=== PATIENT | male | born 1950 | race Caucasian/White ===

== ENCOUNTER 2017-11-14 08:46 | Emergency (ER) | payer MEDICARE, BC ==
[~2017-11-14] VITALS: Ht 177.8 cm; Wt 134.3 kg
[~2017-11-14 08:46] MED LIST: AUGMENTIN 875-1 EACH PO; GLIMEPIRIDE2 MG PO; LISINOPRIL5 MG PO; METFORMIN HCL850 MG PO; PROVENTIL HFA6.7 GM INH; SIMVASTATIN20 MG PO; ZOFRAN4 MG PO
[2017-11-14] MEDS ORDERED: CLEOCIN HCL300 MG PO (09:40)
== END 2017-11-14 10:11 | disposition home or self-care (01) ==
LOC: ED 08:46
PROC: 0H9GXZZ Drainage of Left Hand Skin, External Approach (ICD-10-PCS; principal; 2017-11-14)
DX: L03.012 Cellulitis of left finger (principal); E11.9 Type 2 diabetes mellitus without complications; I10 Essential (primary) hypertension; Z87.891 Personal history of nicotine dependence; Z88.6 Allergy status to analgesic agent; Z88.5 Allergy status to narcotic agent; Z88.7 Allergy status to serum and vaccine; Z79.84 Long term (current) use of oral hypoglycemic drugs; Z79.899 Other long term (current) drug therapy
CPT/HCPCS: 10060; 99283

== ENCOUNTER 2020-09-05 19:54 | Emergency (ER) | payer MEDICARE, BC ==
[~2020-09-05] VITALS: Ht 172.7 cm; Wt 127.9 kg
[~2020-09-05 19:54] MED LIST changes: +ALLOPURINOL300 MG PO; +AMOXICILLIN500 MG PO; +BENZONATATE100 MG PO; +CEPHALEXIN500 MG PO; +CLEOCIN HCL300 MG PO; +ONDANSETRON HCL8 MG PO; +PROCHLORPERAZIN10 MG PO; +VALTREX500 MG PO; +ZITHROMAX250 MG PO
[2020-09-05] MEDS ORDERED: FUROSEMIDE20 MG PO (20:26)
[2020-09-05] MEDS ORDERED: IMBRUVICA420 MG PO (20:26)
[2020-09-05] MEDS ORDERED: METOPROLOL TART25 MG PO (20:26)
[2020-09-05] MEDS ORDERED: FLOMAX0.4 MG PO (20:27)
[2020-09-05] MEDS ORDERED: MELOXICAM7.5 MG PO (20:27)
[2020-09-05] MEDS ORDERED: BACTRIM DS TAB1 EACH PO (20:27)
--- OUTSIDE RECORDS SUMMARY | 2020-09-05 20:46 | XMS ---
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 Bere has no Care Guidelines for this patient. Sujata VISIT COUNT (12 MO.) 1 [facility] TOTAL 1 NOTE: Visits indicate total known visits. ED/UCC VISIT TRACKING (12 MO.) 09/05/2020 19:54 [facility] [place] TYPE: Emergency COMPLAINT: - RT LEG SWELLING/POST OP PROBLEM INPATIENT VISIT TRACKING (12 MO.) 08/16/2020 07:56 Mary[facility] TYPE: Inpatient COMPLAINT: - RIGHT HIP OSTEOARTHRITIS [email or web address]
== END 2020-09-05 21:34 | disposition home or self-care (01) ==
LOC: ED 19:54
DX: M96.89 Other intraoperative and postprocedural complications and disorders of the musculoskeletal system (principal); E11.9 Type 2 diabetes mellitus without complications; I10 Essential (primary) hypertension; Z87.891 Personal history of nicotine dependence; Z88.8 Allergy status to other drugs, medicaments and biological substances; Z88.5 Allergy status to narcotic agent; Z88.7 Allergy status to serum and vaccine; Z79.899 Other long term (current) drug therapy; Z79.84 Long term (current) use of oral hypoglycemic drugs
CPT/HCPCS: 93971; 99283-25

== ENCOUNTER 2021-12-23 11:15 | Inpatient (IN) | payer MEDICARE, BC ==
[~2021-12-23] VITALS: Ht 172.7 cm; Wt 129.3 kg
[~2021-12-23 11:15] MED LIST changes: +BACTRIM DS TAB1 EACH PO; +FLOMAX0.4 MG PO; +FUROSEMIDE20 MG PO; +IMBRUVICA420 MG PO; +MELOXICAM7.5 MG PO; +METOPROLOL TART25 MG PO
[2021-12-23] MEDS ORDERED: ELIQUIS5 MG PO (12:53)
--- NOTE | 2021-12-23 17:30 | NUR ---
PT TO ROOM 115 FROM ER - WITH HIM, PT WITH RT FOR TX. CONFIRM ALLERGY AND CALLED TO DR. FAUSTIN PER REQUEST. OK FOR TYLENOL. PT HAD PAXLOVID FROM DR. CALDERÓN 12/11 FOR COVID TEST FROM HOME, PHONE RX TO PERRY OLMSTEAD FROM [facility]. PT ORIENTED TO ROOM AND CALL LIGHT.
--- NOTE | 2021-12-23 17:43 | NUR ---
CALL FROM DR. FAUSTIN - RN EXPLAINED TO PT THAT ABX WILL CONTINUE FOR PNEUMONIA. WENT HOME TO GET HOME MEDS - PT DOES NOT USE CPAP AT HOME,
[2021-12-23] MEDS ORDERED: METFORMIN HCL1000 MG PO (18:01)
--- NOTE | 2021-12-23 19:37 | NUR ---
REPORT RECEIVED ON PT AT SHIFT CHANGE. DR FAUSTIN CALLED FOR A MISSING DIET ORDER. HE STATED HE WOULD ENTER A DIET ORDER. PT DOES HAVE AC AND HS BG CHECKS WITH SS INSULIN.
--- NOTE | 2021-12-23 20:53 | NUR ---
PT SON BROUGHT IN A HAMBURGER FOR PT. PT UP IN HIS CHAIR, STATES HE HASN'T ATE IN COUPLE DAYS.
--- NOTE | 2021-12-23 21:30 | NUR ---
PT'S LUNGS HAVE EXP WHEEZING THROUGHOUT. PT HAS SCHEDULED NEBULIZER TREATMENTS. HE STATED HE JUST WANTS TO SLEEP TONIGHT BUT PT IS ENCOURAGED TO HAVE HIS NEB TREATMENTS.
--- NOTE | 2021-12-23 21:34 | NUR ---
PT CALLED, IV ALARMING, DISTAL OCCUL. NOW INFUSING. PT COUGHING AND COUGHING, NO OTHER NEEDS AT THIS TIME.
--- NOTE | 2021-12-23 23:17 | NUR ---
PT'S BP IS 85/46 WITH MAP OF 55. PT HAD SOME DIZZINESS WHEN GETTING UP TO THE BATHROOM. DR SAMPSON NOTIFIED WITH A MESSAGE ON HIS CELLL PHONE HE IS IN SURGERY AT THIS TIME.
--- NOTE | 2021-12-24 00:56 | NUR ---
PT IS SITTING UP IN THE CHAIR HE STATES HE HAS BEEN SITTING UP IN HIS CHAIR AT HOME IN ORDER TO BREATHE. HE STATESHIS COUGH IS BETTER AFTER THE BREATHING TREATMENTS. PT HAS RECEIVED THE 1 BAG OF LR ORDERED. IV IS FLUSHED AND SALINE LOCKED. PT IS TOLERATING HIS DIET AND HAS VOIDED.
--- NOTE | 2021-12-24 01:13 | NUR ---
NOTE WRITTEN ON 12/23 AT 2317 REGARDING AN ABNORMAL BP WAS WRITTEN ON THE WRONG PT. PLEASE DISREGARD THIS NOTE INCORRECT.
--- NOTE | 2021-12-24 01:46 | NUR ---
V/S TAKEN AND DOCUMENTED. PATIENT DENIES ANY NEEDS AT THIS TIME. PATIENT WAS UP IN THE CHAIR.
--- NOTE | 2021-12-24 08:43 | NUR ---
MORNING ASSESSMENT COMPLETE. PT UP TO RESTROOM AND BACK TO RECLINER TO FINISH BREAKFAST. LUNG SOUND CRACKLES AND DIM IN THE BASES. SOB WITH ACTIVITY. DENIES NEED AT THIS TIME. CALL LIGHT WITHIN REACH.
--- NOTE | 2021-12-24 09:38 | NUR ---
NEW GOWN PROVIDED FOR PT. PT DENIES NEEDS AT THIS TIME. CALL LIGHT IN REACH.
--- NOTE | 2021-12-24 10:45 | NUR ---
PT SITTING UP IN RECLINER. DENIES NEEDS AT THIS TIME. CALL LIGHT IN REACH.
--- NOTE | 2021-12-24 11:49 | NUR ---
PT LUNCH DELIEVERED. SITTING UP IN RECLINER. PRODUCTIVE COUGH, OFFERED PRN RUBOTUSSIN, PT DENIES NEED AT THIS TIME. CALL LIGHT IN REACH. DENIES FURTHER NEEDS AT THIS TIME.
--- NOTE | 2021-12-24 12:30 | NUR ---
Spoke with Man. States he lives in a 2 story home with 13 steps to get into the home and 8 steps inside the home. He lives with his and son. He has a walker and a cane, but not currently using. Used for a hip surgery. No financial issues. Per pt he is feeling slightly better today, but cont. with severe cough. States he has been very ill since yury covid. He and both drive. and son will assist him if needed when he goes home. Pt place on dc to home when medical- ly cleared. Denies needs.
--- NOTE | 2021-12-24 15:39 | NUR ---
PT SITTING UP AWAKE IN RECLINER. DENIES NEEDS AT THIS TIME. CALL LIGHT IN REACH.
--- NOTE | 2021-12-24 17:30 | NUR ---
PT SITTING UP IN CHAIR EATING DINNER. DENIES NEEDS AT THIS TIME. CALL LIGHT WITHIN REACH.
--- NOTE | 2021-12-24 19:29 | NUR ---
REPORT RECEIVED ON PT . HE IS UP IN HIS CHAIR. CALL LIGHT IN REACH. NO NEEDS AT THIS TIME.
--- NOTE | 2021-12-24 21:00 | NUR ---
CALL LIGHT AT SDIE OF CHAIR.PT UP TO BATHROOM TO VOID. URINE IS DARK YELLOW. PT IS SOB AFTER ACTIVITY. BACK TO CHAIR.
--- NOTE | 2021-12-25 01:00 | NUR ---
PT APPEARS TO BE SLEEPING IN HIS CHAIR. CALL LIGHT IN REACH.
--- NOTE | 2021-12-25 06:50 | NUR ---
PT STATES HE FINALLY SLEPT LAST NIGHT. OF NOTE IS HE HAS HAD A TEMP OF 100.1 THIS AM AND RECEIVED TYLENOL 500 MG PO X1 DOSE. HE ALSO HAS HAD COARSENESS AND EXPIRATORY WHEEZES THROUGHOUT HIS LUNG CRUZ. PT HAS A HARSH STTRONG COUGH THAT IS PRODUCTIVE THICK AND BROWN COLORED. VSS.
--- NOTE | 2021-12-25 09:02 | NUR ---
MORNING ASSESSMENT COMPLETE. PT HAS HARSH PRODUCTIVE COUGH, O2 SAT 95% ON RA. COARSE LUNG SOUNDS THROUGHOUT, MORE PRONOUNCED ON LEFT SIDE. 2+ PITTING EDEMA TO BLE. PT DENIES FURTHER NEEDS AT THIS TIME. CALL LIGHT IN REACH.
--- NOTE | 2021-12-25 09:50 | NUR ---
TO THE [facility]OL [facility] TO SPEAK WITH PATIENT. PATIENT STATES HE IS DOING BETTER AND IS NOTED TO BE SITTING UP THE CHAIR. PATIENT STATES NO NEEDS OR CONCERNS AT THIS TIME. NO CHANGE IS DISCHARGE PLAN.
--- NOTE | 2021-12-25 10:32 | NUR ---
PATIENT IS SITTING UP IN HIS CHAIR. ASKED HIM IS THERE ANYTHING I COULD GET USE AND HE SAID NO. HE HAS BEEN USING HIS TRUMPET.
[2021-12-25] MEDS ORDERED: LEVOFLOXACIN750 MG PO (11:41)
[2021-12-25] MEDS ORDERED: BENZONATATE100 MG PO (11:42)
[2021-12-25] MEDS ORDERED: IPRATROPIU0.2 MG/1 M INH (11:43)
[2021-12-25] MEDS ORDERED: NEBULIZER UNIT XX (11:44)
[2021-12-25] MEDS ORDERED: ROBAFEN DM CGH118 ML PO (11:45)
--- NOTE | 2021-12-25 12:15 | NUR ---
pt sitting in recliner, eating lunch. denies needs at this time. call maxim hidalgo.
--- NOTE | 2021-12-25 13:10 | NUR ---
PT DRESSED, PHARMACY ON THE WAY TO DO DISCHARGE TEACHING. DENIES NEEDS AT THIS TIME. CALL LIGHT IN REACH.
--- NOTE | 2021-12-25 15:00 | NUR ---
Received a call from [facility] stating they needed 6 months of documentation for a nebulizer. Returned their call and spoke with Flor. She let her know, we are not a doctor's office. We have sent the correct paperwork. She then states they need to know the medications and let her know this is also on page 3 of the dc summary. She then lets me know, they are unable to deliver a nebulizer until the . I let her know I have spoken with their grant manager serveral times and he has always let me know they cant to pm deliveries, but will deliver their next trip to [place]. She states they won't be here until the . Let her know this is ok, I will call Man and see if he would like to get it from [facility]. Called pt and let him know [facility] cannot deliver until the . Asked if he would like me to send the papers and the rx to [facility] in [facility] and he states yes. Chart faxed.
--- NOTE | 2021-12-25 16:16 | NUR ---
Called and spoke with Ho. He will use whatever DME company he can. Let him know I called the pharmacys in [facility] and no one has a Nebulizer in stock. Gave him the option of ordering from [facility] [facility] and he would prefer a DME company. [facility] and they have one coach tour driver and he cannot deliver until Wednesday.Let pt know I have called the pharmacies in [facility] and they do not have any nebulizers in [facility]. Pt states he will call family and see if they can pickup from [facility] as they will be near [place] tomorrow. Called [facility] and spoke with the private branch exchange operator, Yariel. Updated pt really wanting and needing a nebulizer. He states he is trying to find a coach tour driver, but not having any luck. Let him know I spoke with the pt and he was able to find a family member who will pick it up tomorrow. I have sent the chart already and they should have everything they need.
== END 2021-12-25 14:40 | disposition home or self-care (01) | DRG 177 ==
LOC: ED 11:15 → MS 11:17
PROVIDERS: ADMIT Internal Medicine; ATTEND Internal Medicine
PROC: 8E0ZXY6 Isolation (ICD-10-PCS; principal; 2021-12-23)
DX: U07.1 COVID-19 (principal); J12.82 Pneumonia due to coronavirus disease 2019; J15.9 Unspecified bacterial pneumonia; C91.10 Chronic lymphocytic leukemia of B-cell type not having achieved remission; I48.0 Paroxysmal atrial fibrillation; E11.9 Type 2 diabetes mellitus without complications; J98.01 Acute bronchospasm; I10 Essential (primary) hypertension; G47.33 Obstructive sleep apnea (adult) (pediatric); Z85.72 Personal history of non-Hodgkin lymphomas; Z98.890 Other specified postprocedural states; Z96.641 Presence of right artificial hip joint; Z92.21 Personal history of antineoplastic chemotherapy; Z90.49 Acquired absence of other specified parts of digestive tract; Z88.5 Allergy status to narcotic agent; Z88.7 Allergy status to serum and vaccine; Z79.84 Long term (current) use of oral hypoglycemic drugs; Z79.899 Other long term (current) drug therapy; Z79.01 Long term (current) use of anticoagulants; Z88.8 Allergy status to other drugs, medicaments and biological substances; Z72.0 Tobacco use
CPT/HCPCS: 36415; 51701; 71045; 71260; 80048; 80053; 83036; 83605; 83880; 85025; 87040; 87070; 87205; 87502; 94640; 94668; 96376; 99285-25; A9270; C9803; G0378; J1815; J1956; J3010; J7121; U0003

== ENCOUNTER 2022-01-06 16:58 | Inpatient (IN) | payer MEDICARE, BC ==
[~2022-01-06] VITALS: Ht 172.7 cm; Wt 121.7 kg
[~2022-01-06 16:58] MED LIST changes: +ELIQUIS5 MG PO; +IPRATROPIU0.2 MG/1 M INH; +LEVOFLOXACIN750 MG PO; +METFORMIN HCL1000 MG PO; +NEBULIZER UNIT XX; +ROBAFEN DM CGH118 ML PO
--- OUTSIDE RECORDS SUMMARY | 2022-01-06 17:06 | XMS ---
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 ERoni VISIT COUNT (12 MO.) 2 [facility] TOTAL 2 NOTE: Visits indicate total known visits. 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 - Presence of right artificial hip joint - Presence of right artificial hip joint - Personal history of antineoplastic chemotherapy - Pneumonia due to coronavirus disease 2019 - Tobacco use - Allergy status to narcotic agent - Tobacco use - Acquired absence of other specified parts of digestive tract - Acute bronchospasm - [facility] (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 - Essential (primary) hypertension - COVID-19 - Acquired absence of other specified parts of digestive tract - Essential (primary) hypertension - Type 2 diabetes mellitus without complications - Allergy status to narcotic agent - Other specified postprocedural states - Other specified postprocedural states - Allergy status to serum and vaccine - Unspecified bacterial pneumonia - Obstructive sleep apnea (adult) (pediatric) - Obstructive sleep apnea (adult) (pediatric) - Chronic lymphocytic leukemia of B-cell type not having achieved remission - Allergy status to other drugs, medicaments and biological substances - Personal history of non-Hodgkin lymphomas - Personal history of antineoplastic chemotherapy - 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 helper (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 - Unspecified bacterial pneumonia - Type 2 diabetes mellitus without complications - Chronic lymphocytic leukemia of B-cell type not having achieved remission - Pneumonia due to coronavirus disease 2018 - Allergy status to serum and vaccine - Acute bronchospasm - Pneumonia, unspecified organism - Personal history of non-Hodgkin lymphomas - Allergy status to other drugs, medicaments and biological substances - Paroxysmal atrial fibrillation - Paroxysmal atrial fibrillation - Other fpc (current) drug therapy - termite 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 helper (current) use of oral hypoglycemic drugs - termite 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 helper (current) use of oral hypoglycemic drugs - COVID-19 [email or web address]
--- NOTE | 2022-01-08 15:53 | EKG ---
[facility] [address] [place] [address] Signed Atrial fibrillation Cannot rule out Anterior infarct , age undetermined Abnormal ECG No previous ECGs available Confirmed by CHDA FAUSTIN MD ([id number]) on 01/08/2022 3:53:41 PM Electronically Signed By: CHAD FUASTIN MD 01/08/22 1553 PATIENT NAME: TIFFANY KUHN JAVED Electrocardiogram DATE OF : 46 PHYSICIAN: CHAD FAUSTIN MD REPORT #: [id number] REPORT IS CONFIDENTIAL AND NOT TO BE RELEASED WITHOUT AUTHORIZATION
[2022-01-19] MEDS ORDERED: DAPSONE100 MG PO (13:04)
[2022-01-19] MEDS ORDERED: SULFAMETHOXAZO1 EAC1 PO (13:04)
[2022-01-19] MEDS ORDERED: TAMSULOSIN HCL0.4 MG PO (13:05)
[2022-01-19] MEDS ORDERED: METOPROLOL TART25 MG PO (13:05)
== END 2022-01-19 14:30 | disposition home or self-care (01) | DRG 871 ==
LOC: ED 16:58 → CCU 19:33 → MS 01-08 15:30 → CCU 01-08 21:04 → MS 01-15 14:45
PROVIDERS: ADMIT Internal Medicine; ATTEND Internal Medicine
PROC: 3E03329 Introduction of Other Anti-infective into Peripheral Vein, Percutaneous Approach (ICD-10-PCS; principal; 2022-01-06)
PROC: 02HV33Z Insertion of Infusion Device into Superior Vena Cava, Percutaneous Approach (ICD-10-PCS; 2022-01-06)
DX: B37.7 Candidal sepsis (principal); J96.01 Acute respiratory failure with hypoxia; U07.1 COVID-19; I48.20 Chronic atrial fibrillation, unspecified; C91.10 Chronic lymphocytic leukemia of B-cell type not having achieved remission; J44.0 Chronic obstructive pulmonary disease with (acute) lower respiratory infection; B37.1 Pulmonary candidiasis; G47.33 Obstructive sleep apnea (adult) (pediatric); R65.20 Severe sepsis without septic shock; E11.65 Type 2 diabetes mellitus with hyperglycemia; Z96.641 Presence of right artificial hip joint; Z90.49 Acquired absence of other specified parts of digestive tract; Z88.5 Allergy status to narcotic agent; Z88.6 Allergy status to analgesic agent; Z88.7 Allergy status to serum and vaccine; Z79.01 Long term (current) use of anticoagulants; Z79.899 Other long term (current) drug therapy
CPT/HCPCS: 36415; 36569; 36573; 36600; 71045; 71260; 76942; 80048; 80053; 80076; 80202; 81001; 82803; 83036; 83605; 83735; 83880; 85025; 85060; 87040; 87070; 87205; 87493; 87502; 93005; 93010; 94640; 94660; 94667; 94668; 94760; 94799; 96365; 96375; 97110; 97116; 97162; 97165; 97530; 97535; 99285-25; A9270; C1751; C9803; J0692; J1450; J1568; J1815; J1940; J1956; J2405; J3370; J3475; J3480; J7030; J7060; J7121; Q9967; U0003

== ENCOUNTER 2022-11-25 05:58 | Emergency (ER) | payer MEDICARE, BC ==
[~2022-11-25] VITALS: Ht 172.7 cm; Wt 131.5 kg
[~2022-11-25 05:58] MED LIST changes: +DAPSONE100 MG PO; +SULFAMETHOXAZO1 EAC1 PO; +TAMSULOSIN HCL0.4 MG PO
[2022-11-25] MEDS ORDERED: TRULICITY1.5 MG/0.5 SQ (06:11)
[2022-11-25] MEDS ORDERED: AZITHROMYCIN500 MG PO (07:01)
[2022-11-25] MEDS ORDERED: CEFDINIR300 MG PO (07:01)
[2022-11-25 07:22] VITALS: BP 145/62
--- NOTE | 2022-11-25 20:51 | EKG ---
[facility] [address] [place] [address] Signed Atrial fibrillation with rapid ventricular response Septal infarct (cited on or before 06-JAN-2022) Abnormal ECG Confirmed by DERRICK VILLEGAS MD ([id number]) on 11/25/2022 8:50:53 PM Electronically Signed By: DERRICK VILLEGAS MD 11/25/222050 PATIENT NAME: TIFFANY KUHN JAVED Electrocardiogram DATE OF : 46 PHYSICIAN: DERRICK VILLEGAS MD REPORT #: [id number] REPORT IS CONFIDENTIAL AND NOT TO BE RELEASED WITHOUT AUTHORIZATION
== END 2022-11-25 07:24 | disposition home or self-care (01) ==
LOC: ED 05:58
DX: J18.9 Pneumonia, unspecified organism (principal); E11.9 Type 2 diabetes mellitus without complications; I10 Essential (primary) hypertension; Z87.891 Personal history of nicotine dependence; Z88.5 Allergy status to narcotic agent; Z88.7 Allergy status to serum and vaccine; Z79.899 Other long term (current) drug therapy; Z79.01 Long term (current) use of anticoagulants; Z79.84 Long term (current) use of oral hypoglycemic drugs
CPT/HCPCS: 36415; 71045; 80053; 83735; 83880; 84484; 85025; 85379; 85610; 85730; 93005; 93010; 99285-25

== ENCOUNTER 2024-02-09 07:19 | Emergency (ER) | payer MEDICARE, BC ==
[~2024-02-09] VITALS: Ht 172.7 cm; Wt 105.0 kg
[~2024-02-09 07:19] MED LIST changes: +AZITHROMYCIN500 MG PO; +CEFDINIR300 MG PO; +TRULICITY1.5 MG/0.5 SQ
[2024-02-09 07:58] LABS: BASOPHILS 0.5 % (0-2); HEMATOCRIT 42.3 % (35.0-50.0); HEMOGLOBIN 14.2 g/dL (12.0-18.0); LYMPHOCYTES 14.3 % (24-44); MCH 31.5 (27-36); MCHC 33.6 g/dl (30-36); MCV 93.7 fl (81-99); NEUTROPHILS 74.2 % (39-80); PLATELET COUNT 81 K/uL (140-440); RBC 4.52 M/ul (4.3-5.7); RDW 14.3 (10.5-15.0)
[2024-02-09] MEDS ORDERED: VENCLEXTA100 MG PO (08:00)
[2024-02-09] MEDS ORDERED: ondansetron HCL 4 MG/2 ML VIAL IV ONE (08:00)
[2024-02-09] MEDS ORDERED: JARDIANCE25 MG PO (08:01)
[2024-02-09] MEDS ORDERED: OZEMPIC1 MG/0.71 SUB-Q (08:02)
[2024-02-09] MEDS ORDERED: TAMSULOSIN HCL0.4 MG PO (08:02)
[2024-02-09 08:13] LABS: ALBUMIN 4.1 g/dL (3.4-5.0); ALBUMIN/GLOBULIN RATIO 1.52 (1.1-2.4); ANION GAP 17.1 (7-21); BILIRUBIN, TOTAL 1.7 ng/dL (0.2-1.0); BUN/CREATININE RATIO 13.33 (6.0-28.6); CREATININE, SERUM 1.65 mg/dL (0.70-1.30); POTASSIUM 4.1 mmol/L (3.5-5.1); PROTEIN, TOTAL 6.8 g/dL (6.4-8.2)
[2024-02-09] MEDS ORDERED: SODIUM CHLORIDE 0.9% 1,000 ML IV ONE (08:30)
[2024-02-09 10:49] VITALS: BP 125/84
== END 2024-02-09 10:50 | disposition home or self-care (01) ==
LOC: ED 07:19
PROVIDERS: Emergency Medicine
DX: N20.0 Calculus of kidney (principal); I10 Essential (primary) hypertension; E11.9 Type 2 diabetes mellitus without complications; Z88.5 Allergy status to narcotic agent; Z88.7 Allergy status to serum and vaccine; Z79.899 Other long term (current) drug therapy; Z79.84 Long term (current) use of oral hypoglycemic drugs
CPT/HCPCS: 36415; 74177; 80053; 83690; 85025; 99284-25; J2405; J7030